=== PATIENT | female | born 1985 ===

== ENCOUNTER 2019-01-13 17:22 | Emergency (ER) | payer OTHER ==
[2019-01-13 17:41] VITALS: BP 108/77; PULSE 86; RESP 16; TEMP 98; O2SAT 98
--- NOTE | 2019-01-13 17:51 | C.PDOC ---
History Of Present Illness 33 y/o female pt with hx of schizophrenia and bipolar disorder presents to the ER requesting abx for her ears, lips and teeth. Pt notes water fell in her ears a few days ago and that she has an ear infection. Pt reports that her teeth has been decaying for x1 year. Pt saw a dentist who says she needs emergency surgery, but due to insurance issues, she is unable to. Pt does not have any other associated sx or complaints at this time. Chief Complaint (Nursing): Medical Clearance History Per: Patient Onset/Duration Of Symptoms: Days Current Symptoms Are (Timing): Still Present Past Medical History Reviewed: Historical Data, Nursing Documentation, Vital Signs Vital Signs: Last Vital Signs Temp 98 F 01/13/19 17:36 Pulse 86 01/13/19 17:36 Resp 16 01/13/19 17:36 BP 108/77 01/13/19 17:36 Pulse Ox 98 01/13/19 17:36 - Medical History PMH: Depression Family History: States: Unknown Family Hx - Social History Hx Tobacco Use: No Hx Alcohol Use: No Hx Substance Use: No - Immunization History Hx Tetanus Toxoid Vaccination: No Hx Influenza Vaccination: No Hx Pneumococcal Vaccination: No Review Of Systems Constitutional: Positive for: Other (requesting abx for b/l ears, teeth and lips ). Negative for: Fever, Chills ENT: Positive for: Mouth Pain. Negative for: Ear Pain, Nose Discharge Respiratory: Negative for: Cough Gastrointestinal: Negative for: Nausea, Vomiting Musculoskeletal: Negative for: Neck Pain Skin: Negative for: Bruising Neurological: Negative for: Headache Physical Exam - Physical Exam Appears: Non-toxic, No Acute Distress Skin: Warm, Dry Head: Atraumatic, Normacephalic Eye(s): bilateral: Normal Inspection, PERRL Ear(s): Left: Normal, Right: TM Obscured By Wax Nose: No Discharge Oral Mucosa: Moist Tongue: Normal Appearing Lips: Other (dry ) Teeth: Other (poor dentition ) Gingiva: Other (gingivitis ) Throat: Normal, No Erythema, No Exudate Neck: Normal ROM, Supple Chest: Symmetrical Cardiovascular: Rhythm Regular Respiratory: Normal Breath Sounds, No Wheezing Neurological/Psych: Oriented x3, Normal Motor, Normal Sensation ED Course And Treatment O2 Sat by Pulse Oximetry: 98 (RA) Pulse Ox Interpretation: Normal Disposition Counseled Patient/Family Regarding: Diagnosis, Need For Followup, Rx Given - Disposition Referrals: Telma Villa DMD [Staff Provider] - [facility] [Outside] Disposition: HOME/ ROUTINE Disposition Time: 17:48 Condition: STABLE Additional Instructions: start Clindamycin four times a day for 10 days for dental infection Use magic mouth wash twice a day Debrox is for the wax build up Recommend Aquaphor to the skin to help moisturize the skin follow up with Dental clinic regarding dental care follow up with PMD regarding skin/ear complaints Return to ED if symptoms worsen Prescriptions: Carbamide Peroxide [Debrox 15 Ml] 5 drop AD DAILY #1 bottle Clindamycin [Cleocin] 10 ml PO QID 10 Days #400 ml Petrolatum,White [Aquaphor] 1 appl TP DAILY #1 tube Instructions: Ear Wax Impaction (DC), Tooth Decay, Adult (DC), Itchy Skin, Dental Pain (DC) Forms: Sa[employer]uo (Grenadian) - Clinical Impression Clinical Impression: Dental caries, Cerumen impaction, Dry skin dermatitis - PA / [employer] SAL[employer] REPRESENTATIVE / Resident Statement MD/ has reviewed & agrees with the documentation as recorded. - Scribe Statement The provider has reviewed the documentation as recorded by the Fany Clifton Do All medical record entries made by the Scribe were at my direction and personally dictated by me. I have reviewed the chart and agree that the record accurately reflects my personal performance of the history, physical exam, medical decision making, and the department course for this patient. I have also personally directed, reviewed, and agree with the discharge instructions and disposition.
== END 2019-01-13 18:11 | disposition home or self-care (01) ==
LOC: C.ER 17:22
DX: K02.9 Dental caries, unspecified (principal); L85.3 Xerosis cutis; H61.20 Impacted cerumen, unspecified ear; F20.9 Schizophrenia, unspecified; F31.9 Bipolar disorder, unspecified